=== PATIENT | female | born 1985 | race Hispanic/Latino ===

== ENCOUNTER 2025-04-14 16:52 | Emergency (ER) | payer BC ==
[~2025-04-14] VITALS: Ht 162.6 cm; Wt 83.9 kg
[2025-04-14 19:45] VITALS: PULSE 83; RESP 16; TEMP 98.6; O2SAT 99
[2025-04-14] MEDS ORDERED: MOTRIN800 MG PO (19:53)
[2025-04-14] MEDS: IBUPROFEN 400 MG TAB PO ONE (19:55)
== END 2025-04-14 20:02 | disposition home or self-care (01) ==
LOC: ER 19:32
DX: S00.83XA Contusion of other part of head, initial encounter (principal); S60.222A Contusion of left hand, initial encounter; S93.492A Sprain of other ligament of left ankle, initial encounter; Y04.8XXA Assault by other bodily force, initial encounter; Y92.89 Other specified places as the place of occurrence of the external cause; F17.210 Nicotine dependence, cigarettes, uncomplicated
CPT/HCPCS: 99283